=== PATIENT | female | born 1995 | race Caucasian/White ===

== ENCOUNTER 2023-10-25 09:59 | Outpatient (CLI) | payer BC ==
[2023-10-25 12:09] LABS: BASOPHILS % (AUTO) 0.6 %; EOSINOPHILS # (AUTO) 0.1 10^3/uL (0.0-0.7); EOSINOPHILS % (AUTO) 1.2 %; HCT - HEMATOCRIT 39.9 % (37.0-47.0); HGB - HEMOGLOBIN 13.4 g/dL (12.0-16.0); LYMPHOCYTES # (AUTO) 2.5 10^3/uL (1.5-3.5); LYMPHOCYTES % (AUTO) 36.8 %; MEAN CORPUSCULAR HEMOGLOBIN 30.2 pg (27.0-31.0); MEAN CORPUSCULAR HGB CONC 33.6 g/dL (32.0-36.0); MEAN CORPUSCULAR VOLUME 90.1 fL (81.0-99.0); MEAN PLATELET VOLUME 9.4 fL (7.9-10.8); MONOCYTES # (AUTO) 0.3 10^3/uL (0.0-1.0); MONOCYTES % (AUTO) 4.6 %; NEUTROPHILS # (AUTO) 3.8 10^3/uL (1.5-6.6); NEUTROPHILS % (AUTO) 56.7 %; PLT - PLATELET COUNT 288 10^3/uL (130-450); RED BLOOD COUNT 4.43 10^6/uL (4.20-5.40); RED CELL DISTRIBUTION WIDTH 11.9 % (12.0-15.0); WHITE BLOOD COUNT 6.7 x10^3/uL (4.8-10.8)
[2023-10-25 12:38] LABS: ALBUMIN 4.3 g/dL (3.2-5.5); ALBUMIN/GLOBULIN RATIO 1.4 (1.0-2.2); BILIRUBIN,TOTAL 0.5 mg/dL (0.2-1.0); CREATININE 0.8 mg/dL (0.6-1.3); POTASSIUM 4.1 mmol/L (3.5-4.5); TOTAL PROTEIN 7.3 g/dL (6.4-8.9)
[2023-10-25 12:57] LABS: THYROID STIMULATING HORMONE 2.11 uIU/mL (0.34-5.60)
== END 2023-10-25 10:00 | disposition home or self-care (01) ==
LOC: LAB.N 09:59
PROVIDERS: ATTEND Family Medicine
DX: R00.2 Palpitations (principal)
CPT/HCPCS: 36415; 80053; 84443; 85025

== ENCOUNTER 2023-11-05 12:27 | Outpatient (CLI) | payer BC ==
--- NOTE | 2023-11-05 15:33 | Ultrasound Report ---
PROCEDURE: Soft Tissue Head or Neck INDICATIONS: LUMP ON FACE, ADRENAL ADENOMA TECHNIQUE: Real-time scanning was performed of the palpable lump, right cheek, with image documentation. COMPARISON: None FINDINGS: The palpable lump corresponds to a small, hypoechoic, solid superficial mass without vascu larity measuring 0.8 x 0.6 x 0.8 cm. IMPRESSION: Palpable lump corresponds to small solid superficial nodule of uncertain etiology, right cheek. Reviewed by: Hakeem Costa MD on 11/05/2023 3:31 PM PST Approved by: Hakeem Costa MD on 11/05/2023 3:31 PM PST Station ID: [id number]
== END 2023-11-05 12:28 | disposition home or self-care (01) ==
LOC: DI 12:27
PROVIDERS: ATTEND Family Medicine
DX: R22.0 Localized swelling, mass and lump, head (principal)

== ENCOUNTER 2023-11-20 07:15 | Outpatient (CLI) | payer BC ==
[2023-11-20 12:24] LABS: CHOL/HDL RATIO 3.5 (<4.4); CHOLESTEROL 173 mg/dL; HDL CHOLESTEROL 50 mg/dL; LDL CHOLESTEROL,CALCULATED 96 mg/dL; LDL/HDL RATIO 1.9 (<4.4); TRIGLYCERIDES 136 mg/dL (48-352); VLDL CHOLESTEROL 27 mg/dL
[2023-11-20 12:36] LABS: ESTIMATED AVERAGE GLUCOSE 91 mg/dL (70-100); HEMOGLOBIN A1c% 4.8 % (4.27-6.07)
== END 2023-11-20 07:16 | disposition home or self-care (01) ==
LOC: LAB.N 07:15
PROVIDERS: ATTEND Family Medicine
DX: Z86.32 Personal history of gestational diabetes (principal)
CPT/HCPCS: 36415; 80061; 83036; 83721

== ENCOUNTER 2023-12-03 17:13 | Outpatient (CLI) | payer BC ==
[~2023-12-03 17:13] MED LIST: DIATRIZOATE MEGLU/DIATRIZO SOD 30 ML BOTTLE PO ONE; iohexoL-300 100 ML VIAL ONE
[2023-12-03] MEDS ORDERED: iohexoL-300 100 ML VIAL ONE (17:15)
[2023-12-03] MEDS ORDERED: DIATRIZOATE MEGLU/DIATRIZO SOD 30 ML BOTTLE PO ONE (17:15)
[2023-12-03] MEDS: iohexoL-300 100 ML VIAL IVP ONE (18:36)
[2023-12-03] MEDS: DIATRIZOATE MEGLU/DIATRIZO SOD 30 ML BOTTLE PO ONE (18:36)
--- NOTE | 2023-12-04 16:05 | CT Report ---
PROCEDURE: Abdomen/Pelvis W INDICATIONS: ADRENAL ADENOMA CONTRAST: 100mL Omni 300 TECHNIQUE: After the administration of intravenous contrast, a CT scan of the abdomen and pelvis was performed. Images were recorded and evaluated at appropriate window settings. Reformats: coronal and sagittal. F or radiation dose reduction, the following was used: automated exposure control, adjustment of mA and /or kV according to patient size. COMPARISON: 09/13/2021 FINDINGS: Image quality: Diagnostic. Lower chest: Unremarkable. Liver: Mild hepatomegaly and mild hepatic steatosis. No arterially enhancing mass. Gallbladder and biliary tree: Nondilated biliary tree. Decompressed gallbladder. Spleen: Spleen is slightly enlarged measuring 13.7 cm in AP diameter, minimally increased. Pancreas: Normal. Adrenals: A low-density well-circumscribed ovoid adrenal nodule arising from the medial limb of the l eft adrenal gland measures 2.4 x 2.0 cm, stable in size compared to the prior exam. No new adrenal no dules. Kidneys and ureters: Symmetric renal enhancement. There are at least 4 nonobstructing right intrarena l calculi and 2 punctate nonobstructing left-sided calculi. No suspicious mass or hydronephrosis. No hydronephrosis or ureteral stone. Stomach, bowel and peritoneum: Stomach, small bowel, appendix, and colon are within normal limits. Lymph nodes: No central or retroperitoneal adenopathy. Vessels: Normal caliber abdominal aorta, IVC and portal veins. PELVIS Reproductive organs: Anteverted uterus and ovaries have a normal CT appearance. Bladder: Decompressed. No wall thickening or stone visible. Pelvic lymph nodes: No pelvic adenopathy by size criteria. Bones: No aggressive osseous abnormality. Other: No significant ventral or inguinal hernia. IMPRESSION: Stable 2.4 cm left adrenal nodule. Low-density on noncontrast CT previously characterize this as a li pid rich adenoma. Mild hepatomegaly and hepatic steatosis. Mild splenomegaly. Bilateral nonobstructing intrarenal calculi. Reviewed by: Suzanne Lloyd MD on 12/04/2023 4:04 PM PST Approved by: Suzanne Lloyd MD on 12/04/2023 4:04 PM PST Station ID: [id number]
== END 2023-12-03 17:14 | disposition home or self-care (01) ==
LOC: DI 17:13
PROVIDERS: ATTEND Family Medicine
DX: D35.00 Benign neoplasm of unspecified adrenal gland (principal); R16.0 Hepatomegaly, not elsewhere classified; K76.0 Fatty (change of) liver, not elsewhere classified; N20.0 Calculus of kidney
CPT/HCPCS: 74177; Q9963; Q9967